=== PATIENT | male | born 1995 | race Caucasian/White ===

== ENCOUNTER 2020-01-22 16:44 | Emergency (ER) | payer OTHER ==
[~2020-01-22] VITALS: Ht 172.7 cm; Wt 89.0 kg
[~2020-01-22 16:44] MED LIST: INSREG SQ
[2020-01-22] MEDS ORDERED: HALOPERIDOL LACTATE 5 MG/ML VIAL IM ONE (17:45)
[2020-01-22 19:28] LABS: GLUCOSE,POINT OF CARE 207 MG/DL (70-110)
[2020-01-22 23:46] VITALS: BP 120/81
[2020-01-23 00:22] LABS: GLUCOSE,POINT OF CARE 331 MG/DL (70-110)
== END 2020-01-23 00:18 | disposition home or self-care (01) ==
LOC: EMS 16:44
DX: F10.129 Alcohol abuse with intoxication, unspecified (principal); E11.9 Type 2 diabetes mellitus without complications; Z79.4 Long term (current) use of insulin; Y90.7 Blood alcohol level of 200-239 mg/100 ml
CPT/HCPCS: 36415; 82962; 96372; 99285; G0480; J1630; 82948

== ENCOUNTER 2020-03-09 13:25 | Emergency (ER) | payer MEDICAID, OTHER ==
[~2020-03-09] VITALS: Ht 175.3 cm; Wt 79.5 kg
[2020-03-09 13:54] LABS: GLUCOSE,POINT OF CARE 330 MG/DL (70-110)
[2020-03-09 14:13] LABS: BASOPHILS % (AUTO) 0.6 % (0.0-2.0); EOSINOPHILS % (AUTO) 1.1 % (1.0-6.0); HEMATOCRIT 46.9 % (41-53); HEMOGLOBIN 16.1 g/dL (13.5-17.5); LYMPHOCYTES # (AUTO) 2.3 K/uL (1.0-4.8); LYMPHOCYTES % (AUTO) 24.2 % (22.0-44.0); MEAN CORPUSCULAR HEMOGLOBIN 30.2 pg (26.0-34.0); MEAN CORPUSCULAR HGB CONC 34.3 G/dL (31.0-37.0); MEAN CORPUSCULAR VOLUME 88 fL (80-100); MONOCYTES # (AUTO) 0.5 K/uL (0.1-1.0); MONOCYTES % (AUTO) 5.8 % (2.0-9.0); NEUTROPHILS # (AUTO) 6.4 K/uL (1.8-7.7); NEUTROPHILS % (AUTO) 68.3 % (40.0-70.0); PLATELET COUNT (AUTO) 296 K/uL (150-450); RED BLOOD CELL COUNT(AUTO) 5.32 MIL/uL (4.50-5.90); RED CELL DISTRIBUTION WIDTH 12.9 % (11.5-14.5)
[2020-03-09 14:44] LABS: ANION GAP 15 mmol/L (8-16); CALCIUM, TOTAL 9.1 mg/dL (8.8-10.5); CARBON DIOXIDE 22 mmol/L (22-29); CHLORIDE 101 mmol/L (98-107); CREATININE 0.83 mg/dL (0.60-1.30); GLOMERULAR FILTR. RATE CALC > 60 mL/min (>60); GLUCOSE,RANDOM 361 mg/dL (70-110); POTASSIUM 4.3 mmol/L (3.5-5.1); SODIUM SERUM 138 mmol/L (136-145); UREA NITROGEN, BLOOD 14 mg/dL (7-18)
[2020-03-09 14:51] LABS: AMMONIA 20 umol/L (11-32)
[2020-03-09 14:59] LABS: AMPHET/METH SCREEN,URINE NEGATIVE (NEGATIVE); BARBITURATE SCREEN, URINE NEGATIVE (NEGATIVE); BENZODIAZEPINES SCREEN,URINE NEGATIVE (NEGATIVE); CANNABINOID SCREEN,URINE NEGATIVE (NEGATIVE); COCAINE SCREEN,URINE NEGATIVE (NEGATIVE); METHADONE SCREEN, URINE NEGATIVE (NEGATIVE); OPIATE SCREEN,URINE NEGATIVE (NEGATIVE)
[2020-03-09 15:01] LABS: TROPONIN I < 0.02 ng/mL (0.00-0.05)
[2020-03-09 15:02] LABS: PHENCYCLIDINE SCREEN,URINE NEGATIVE (NEGATIVE)
[2020-03-09 15:07] LABS: COVID AG,FIA SOURCE NASOPHARYNGEAL
[2020-03-09 15:20] LABS: ALANINE AMINOTRANSFERASE 35 U/L (12-78); ALBUMIN 4.4 g/dL (3.4-5.0); ALKALINE PHOSPHATASE 108 U/L (46-116); ASPARTATE AMINOTRANSFERASE 16 U/L (15-37); BILIRUBIN,TOTAL 0.4 mg/dL (0.1-1.0); CREATINE KINASE, TOTAL ONLY 104 U/L (39-308); LIPASE 78 U/L (73-393); TOTAL PROTEIN, SERUM 7.6 g/dL (6.4-8.2)
[2020-03-09 15:30] LABS: LACTIC ACID 2.6 mmol/L (0.4-2.0)
[2020-03-09] MEDS ORDERED: SODIUM CHLORIDE 0.9% 1,000 ML IV ONE ×2 (15:30→15:45)
[2020-03-09 15:31] VITALS: BP 137/62
[2020-03-09] MEDS ORDERED: INSULIN REGULAR, HUMAN 100 UNITS/ML SQ ONE (15:45)
[2020-03-09 19:19] LABS: GLUCOSE,POINT OF CARE 326 MG/DL (70-110)
== END 2020-03-09 17:09 | disposition home or self-care (01) ==
LOC: EMS 13:36
DX: F10.129 Alcohol abuse with intoxication, unspecified (principal); Z20.828 Contact with and (suspected) exposure to other viral communicable diseases; G93.0 Cerebral cysts; E11.9 Type 2 diabetes mellitus without complications; Z79.4 Long term (current) use of insulin
CPT/HCPCS: 36415; 70450; 71045; 80053; 80307; 82009; 82140; 82550; 82962; 83605; 83690; 83880; 84484; 85025; 87426; 93005; 96372; 99285; G0480; J1815; J7030

== ENCOUNTER 2023-06-11 18:56 | Emergency (ER) | payer OTHER ==
[~2023-06-11] VITALS: Ht 180.3 cm; Wt 86.0 kg
[2023-06-11 19:33] LABS: HEMATOCRIT 46.5 % (41-53); HEMOGLOBIN 15.9 g/dL (13.5-17.5); LYMPHOCYTES # (AUTO) 2.3 K/uL (1.0-4.8); LYMPHOCYTES % (AUTO) 23.4 % (22.0-44.0); MEAN CORPUSCULAR HEMOGLOBIN 29.9 pg (26.0-34.0); MEAN CORPUSCULAR HGB CONC 34.3 G/dL (31.0-37.0); MEAN CORPUSCULAR VOLUME 87 fL (80-100); MONOCYTES # (AUTO) 0.8 K/uL (0.1-1.0); MONOCYTES % (AUTO) 7.8 % (2.0-9.0); NEUTROPHILS # (AUTO) 6.6 K/uL (1.8-7.7); NEUTROPHILS % (AUTO) 66.8 % (40.0-70.0); PLATELET COUNT (AUTO) 367 K/uL (150-450); RED BLOOD CELL COUNT(AUTO) 5.34 MIL/uL (4.50-5.90); RED CELL DISTRIBUTION WIDTH 13.6 % (11.5-14.5); WHITE BLOOD COUNT (AUTO) 9.9 K/uL (4.5-11.0)
[2023-06-11 19:43] VITALS: TEMP 98
[2023-06-11] MEDS ORDERED: SODIUM CHLORIDE 0.9% 1,000 ML IV ONE (19:45)
[2023-06-11] MEDS ORDERED: ChlordiazePOXIDE HCL 25 MG CAPSULE PO ONE (19:45)
[2023-06-11 19:50] LABS: ALCOHOL, BLOOD (SERUM) 87 mg/dL (0-10)
[2023-06-11 20:04] LABS: ANION GAP 20 mmol/L (8-16); CALCIUM, TOTAL 9.2 mg/dL (8.8-10.5); CARBON DIOXIDE 20 mmol/L (22-29); CHLORIDE 109 mmol/L (98-107); GLOMERULAR FILTR. RATE CALC > 60 mL/min (>60); GLUCOSE,RANDOM 105 mg/dL (70-110); SODIUM SERUM 149 mmol/L (136-145); UREA NITROGEN, BLOOD 8 mg/dL (7-18)
[2023-06-11 20:09] LABS: ALANINE AMINOTRANSFERASE 31 U/L (12-78); ALBUMIN 4.4 g/dL (3.4-5.0); ALKALINE PHOSPHATASE 80 U/L (46-116); ASPARTATE AMINOTRANSFERASE 31 U/L (15-37); BILIRUBIN,TOTAL 0.8 mg/dL (0.1-1.0); LIPASE 27 U/L (16-77); TOTAL PROTEIN, SERUM 7.8 g/dL (6.4-8.2)
[2023-06-11 20:16] VITALS: BP 98/60; PULSE 81; RESP 18
[2023-06-11 20:41] LABS: ALCOHOL, URINE DRUG SCREEN POSITIVE (NEGATIVE); AMPHET/METH SCREEN,URINE NEGATIVE (NEGATIVE); BARBITURATE SCREEN, URINE NEGATIVE (NEGATIVE); BENZODIAZEPINES SCREEN,URINE NEGATIVE (NEGATIVE); CANNABINOID SCREEN,URINE NEGATIVE (NEGATIVE); COCAINE SCREEN,URINE NEGATIVE (NEGATIVE); METHADONE SCREEN, URINE NEGATIVE (NEGATIVE); OPIATE SCREEN,URINE NEGATIVE (NEGATIVE); PHENCYCLIDINE SCREEN,URINE NEGATIVE (NEGATIVE)
== END 2023-06-11 21:17 | disposition home or self-care (01) ==
LOC: EMS 19:13
DX: F10.239 Alcohol dependence with withdrawal, unspecified (principal); E11.9 Type 2 diabetes mellitus without complications; E78.00 Pure hypercholesterolemia, unspecified; F17.210 Nicotine dependence, cigarettes, uncomplicated; Y90.9 Presence of alcohol in blood, level not specified
CPT/HCPCS: 99283; 96360; 80053; 83690; 85025; 36415; 80307; G0480; J7030

== ENCOUNTER 2023-11-06 06:10 | Emergency (ER) | payer MEDICAID, OTHER ==
[~2023-11-06] VITALS: Ht 180.3 cm; Wt 86.5 kg
[2023-11-06 06:22] VITALS: TEMP 98.2
[2023-11-06] MEDS: SODIUM CHLORIDE 0.9% 1,000 ML IV ONE (06:55)
[2023-11-06 07:00] LABS: BASOPHILS % (AUTO) 0.9 % (0.0-2.0); HEMATOCRIT 48.5 % (41-53); HEMOGLOBIN 16.6 g/dL (13.5-17.5); LYMPHOCYTES % (AUTO) 31.4 % (22.0-44.0); MEAN CORPUSCULAR HEMOGLOBIN 30.1 pg (26.0-34.0); MEAN CORPUSCULAR HGB CONC 34.2 G/dL (31.0-37.0); MEAN CORPUSCULAR VOLUME 88 fL (80-100); MONOCYTES # (AUTO) 0.8 K/uL (0.1-1.0); MONOCYTES % (AUTO) 8.7 % (2.0-9.0); NEUTROPHILS # (AUTO) 5.4 K/uL (1.8-7.7); PLATELET COUNT (AUTO) 371 K/uL (150-450); RED BLOOD CELL COUNT(AUTO) 5.51 MIL/uL (4.50-5.90); RED CELL DISTRIBUTION WIDTH 13.7 % (11.5-14.5); WHITE BLOOD COUNT (AUTO) 9.5 K/uL (4.5-11.0)
[2023-11-06 07:14] LABS: ANION GAP 16 mmol/L (8-16); CALCIUM, TOTAL 9.6 mg/dL (8.8-10.5); CARBON DIOXIDE 22 mmol/L (22-29); CHLORIDE 97 mmol/L (98-107); CREATININE 0.73 mg/dL (0.60-1.30); GLOMERULAR FILTR. RATE CALC > 60 mL/min (>60); GLUCOSE,RANDOM 212 mg/dL (70-110); POTASSIUM 3.9 mmol/L (3.5-5.1); SODIUM SERUM 135 mmol/L (136-145); UREA NITROGEN, BLOOD 7 mg/dL (7-18)
[2023-11-06 07:19] LABS: ALANINE AMINOTRANSFERASE 27 U/L (12-78); ALBUMIN 4.2 g/dL (3.4-5.0); ALKALINE PHOSPHATASE 80 U/L (46-116); ASPARTATE AMINOTRANSFERASE 17 U/L (15-37); BILIRUBIN,TOTAL 0.9 mg/dL (0.1-1.0); TOTAL PROTEIN, SERUM 8.2 g/dL (6.4-8.2)
[2023-11-06 07:25] LABS: ALCOHOL, BLOOD (SERUM) 56 mg/dL (0-10)
[2023-11-06] MEDS: ChlordiazePOXIDE HCL 25 MG CAPSULE PO ONE (07:36)
[2023-11-06] MEDS ORDERED: CHLO25CA6 PO (07:55)
[2023-11-06 07:58] LABS: ALCOHOL, URINE DRUG SCREEN NEGATIVE (NEGATIVE); AMPHET/METH SCREEN,URINE NEGATIVE (NEGATIVE); BARBITURATE SCREEN, URINE NEGATIVE (NEGATIVE); BENZODIAZEPINES SCREEN,URINE NEGATIVE (NEGATIVE); CANNABINOID SCREEN,URINE NEGATIVE (NEGATIVE); COCAINE SCREEN,URINE NEGATIVE (NEGATIVE); METHADONE SCREEN, URINE NEGATIVE (NEGATIVE); OPIATE SCREEN,URINE NEGATIVE (NEGATIVE); PHENCYCLIDINE SCREEN,URINE NEGATIVE (NEGATIVE)
[2023-11-06 08:10] VITALS: BP 113/67; PULSE 79; RESP 18
== END 2023-11-06 08:24 | disposition home or self-care (01) ==
LOC: EMS 06:11
DX: F10.239 Alcohol dependence with withdrawal, unspecified (principal); E11.9 Type 2 diabetes mellitus without complications; F17.210 Nicotine dependence, cigarettes, uncomplicated; Z79.899 Other long term (current) drug therapy; Y90.6 Blood alcohol level of 120-199 mg/100 ml
CPT/HCPCS: 99283; 96360; 80053; 82009; 85025; 36415; 80307; G0480; J7030

== ENCOUNTER 2024-02-25 17:56 | Emergency (ER) | payer MEDICAID ==
[~2024-02-25] VITALS: Ht 180.3 cm; Wt 86.0 kg
[~2024-02-25 17:56] MED LIST changes: +CHLO25CA6 PO; -INSREG SQ
[2024-02-25 18:38] VITALS: BP 127/65; PULSE 76; RESP 20; TEMP 98; O2SAT 96
[2024-02-25 19:07] LABS: ANION GAP 11 mmol/L (8-16); CALCIUM, TOTAL 8.8 mg/dL (8.8-10.5); CARBON DIOXIDE 25 mmol/L (22-29); CHLORIDE 101 mmol/L (98-107); CREATININE 0.69 mg/dL (0.60-1.30); GLOMERULAR FILTR. RATE CALC > 60 mL/min (>60); GLUCOSE,RANDOM 141 mg/dL (70-110); POTASSIUM 3.7 mmol/L (3.5-5.1); SODIUM SERUM 137 mmol/L (136-145); UREA NITROGEN, BLOOD 9 mg/dL (7-18)
[2024-02-25 19:11] LABS: BASOPHILS % (AUTO) 0.6 % (0.0-2.0); EOSINOPHILS % (AUTO) 1.6 % (1.0-6.0); LYMPHOCYTES # (AUTO) 2.6 K/uL (1.0-4.8); LYMPHOCYTES % (AUTO) 28.4 % (22.0-44.0); MEAN CORPUSCULAR HEMOGLOBIN 29.7 pg (26.0-34.0); MEAN CORPUSCULAR HGB CONC 33.4 G/dL (31.0-37.0); MEAN CORPUSCULAR VOLUME 89 fL (80-100); MONOCYTES # (AUTO) 0.9 K/uL (0.1-1.0); MONOCYTES % (AUTO) 10.3 % (2.0-9.0); NEUTROPHILS # (AUTO) 5.4 K/uL (1.8-7.7); NEUTROPHILS % (AUTO) 59.1 % (40.0-70.0); PLATELET COUNT (AUTO) 363 K/uL (150-450); RED CELL DISTRIBUTION WIDTH 14.3 % (11.5-14.5); WHITE BLOOD COUNT (AUTO) 9.1 K/uL (4.5-11.0)
[2024-02-25 19:17] LABS: ALANINE AMINOTRANSFERASE 25 U/L (12-78); ALBUMIN 3.8 g/dL (3.4-5.0); ALCOHOL, BLOOD (SERUM) < 3 mg/dL (0-10); ALKALINE PHOSPHATASE 75 U/L (46-116); ASPARTATE AMINOTRANSFERASE 18 U/L (15-37); BILIRUBIN,TOTAL 0.5 mg/dL (0.1-1.0); LIPASE 32 U/L (16-77); TOTAL PROTEIN, SERUM 7.4 g/dL (6.4-8.2)
== END 2024-02-25 20:57 | disposition home or self-care (01) ==
LOC: EMS 17:56
DX: R11.2 Nausea with vomiting, unspecified (principal); R10.84 Generalized abdominal pain; F10.20 Alcohol dependence, uncomplicated; E11.9 Type 2 diabetes mellitus without complications; E78.00 Pure hypercholesterolemia, unspecified; K76.0 Fatty (change of) liver, not elsewhere classified; F17.210 Nicotine dependence, cigarettes, uncomplicated
CPT/HCPCS: 99283; 80048; 80076; 83690; 85025; 36415; G0480

== ENCOUNTER 2024-04-01 22:22 | Emergency (ER) | payer MEDICAID ==
[~2024-04-01] VITALS: Ht 175.3 cm; Wt 95.5 kg
[2024-04-01 22:34] VITALS: TEMP 98
[2024-04-01 23:19] LABS: BASOPHILS % (AUTO) 0.9 % (0.0-2.0); EOSINOPHILS % (AUTO) 0.5 % (1.0-6.0); HEMATOCRIT 49.9 % (41-53); HEMOGLOBIN 16.9 g/dL (13.5-17.5); LYMPHOCYTES # (AUTO) 2.7 K/uL (1.0-4.8); LYMPHOCYTES % (AUTO) 24.5 % (22.0-44.0); MEAN CORPUSCULAR HEMOGLOBIN 29.7 pg (26.0-34.0); MEAN CORPUSCULAR HGB CONC 33.9 G/dL (31.0-37.0); MEAN CORPUSCULAR VOLUME 88 fL (80-100); MONOCYTES # (AUTO) 0.9 K/uL (0.1-1.0); NEUTROPHILS # (AUTO) 7.3 K/uL (1.8-7.7); NEUTROPHILS % (AUTO) 66.1 % (40.0-70.0); PLATELET COUNT (AUTO) 340 K/uL (150-450); RED CELL DISTRIBUTION WIDTH 13.8 % (11.5-14.5)
[2024-04-01 23:30] LABS: ANION GAP 15 mmol/L (8-16); CALCIUM, TOTAL 8.7 mg/dL (8.8-10.5); CARBON DIOXIDE 21 mmol/L (22-29); CHLORIDE 96 mmol/L (98-107); CREATININE 0.71 mg/dL (0.60-1.30); GLOMERULAR FILTR. RATE CALC > 60 mL/min (>60); GLUCOSE,RANDOM 216 mg/dL (70-110); SODIUM SERUM 131 mmol/L (136-145); UREA NITROGEN, BLOOD 7 mg/dL (7-18)
[2024-04-01 23:35] LABS: ALANINE AMINOTRANSFERASE 35 U/L (12-78); ASPARTATE AMINOTRANSFERASE 30 U/L (15-37)
[2024-04-01 23:47] LABS: ALKALINE PHOSPHATASE 94 U/L (46-116); BILIRUBIN,TOTAL 1.1 mg/dL (0.1-1.0); TOTAL PROTEIN, SERUM 7.7 g/dL (6.4-8.2)
[2024-04-02 00:01] LABS: APPEARANCE,URINE CLEAR (CLEAR); BILIRUBIN,URINE NEGATIVE (NEGATIVE); COLOR,URINE LIGHT YELLOW (YELLOW); GLUCOSE, URINE (UA) >=1000 mg/dL (NEGATIVE); KETONES,URINE 40-60 mg/dL (NEGATIVE); LEUKOCYTE ESTERASE ,URINE NEGATIVE (NEGATIVE); NITRATE,URINE NEGATIVE (NEGATIVE); OCCULT BLOOD,URINE NEGATIVE (NEGATIVE); PROTEIN,URINE NEGATIVE (NEGATIVE); SPECIFIC GRAVITIY, URINE 1.016 (1.003-1.030); UROBILINOGEN,URINE <=1.0 mg/dL (<=1.0)
[2024-04-02 00:17] LABS: BACTERIA,URINE None Seen /HPF (None Seen); RBC,URINE None Seen /HPF (0-2); SQUAMOUS EPITHELIAL CELL,UR Few /LPF (None Seen); WBC,URINE None Seen /HPF (0-5)
[2024-04-02 00:20] LABS: LIPASE 31 U/L (16-77)
[2024-04-02 00:22] LABS: ALCOHOL, BLOOD (SERUM) 155 mg/dL (0-10)
[2024-04-02 00:26] LABS: ACETONE,BLOOD NEGATIVE (NEGATIVE)
[2024-04-02] MEDS: ChlordiazePOXIDE HCL 25 MG CAPSULE PO ONE (00:26)
[2024-04-02] MEDS: SODIUM CHLORIDE 0.9% 1,000 ML IV ONE (00:27)
[2024-04-02] MEDS: FAMOTIDINE 20 MG/2 ML VIAL IVP ONE (00:27)
[2024-04-02 03:02] VITALS: BP 123/63; PULSE 86; RESP 18; O2SAT 96
[2024-04-02 03:02] LABS: TROPONIN I-HIGH SENSITIVITY 4 ng/L (<76)
[2024-04-02 03:39] LABS: ALCOHOL, URINE DRUG SCREEN POSITIVE (NEGATIVE); AMPHET/METH SCREEN,URINE NEGATIVE (NEGATIVE); BARBITURATE SCREEN, URINE NEGATIVE (NEGATIVE); BENZODIAZEPINES SCREEN,URINE NEGATIVE (NEGATIVE); CANNABINOID SCREEN,URINE NEGATIVE (NEGATIVE); COCAINE SCREEN,URINE NEGATIVE (NEGATIVE); METHADONE SCREEN, URINE NEGATIVE (NEGATIVE); OPIATE SCREEN,URINE NEGATIVE (NEGATIVE); PHENCYCLIDINE SCREEN,URINE NEGATIVE (NEGATIVE)
[2024-04-02] MEDS ORDERED: FAMO40TA76 PO (03:46)
[2024-04-03 07:31] LABS: GLUCOMETER DEV NAME(LOC) ER.7; GLUCOSE,POINT OF CARE 271 MG/DL (70-110)
== END 2024-04-02 04:08 | disposition home or self-care (01) ==
LOC: EMS 22:23
DX: K29.20 Alcoholic gastritis without bleeding (principal); F10.129 Alcohol abuse with intoxication, unspecified; R11.2 Nausea with vomiting, unspecified; E11.9 Type 2 diabetes mellitus without complications; E78.00 Pure hypercholesterolemia, unspecified; K76.0 Fatty (change of) liver, not elsewhere classified; Z79.4 Long term (current) use of insulin; Z91.041 Radiographic dye allergy status; F17.210 Nicotine dependence, cigarettes, uncomplicated; Y90.6 Blood alcohol level of 120-199 mg/100 ml
CPT/HCPCS: 99285; 80053; 81001; 82009; 82962; 83690; 84484; 85025; 93005; 80307; 74176; 96374; 96361; 36415; G0480; J3490; J7030

== ENCOUNTER 2024-06-23 16:56 | Emergency (ER) | payer MEDICAID, OTHER ==
[~2024-06-23] VITALS: Ht 172.7 cm; Wt 85.0 kg
[~2024-06-23 16:56] MED LIST changes: +FAMO40TA76 PO
[2024-06-23 18:19] VITALS: BP 122/80; PULSE 78; RESP 20; TEMP 97.7; O2SAT 98
[2024-06-23] MEDS ORDERED: PRAV40TA4 PO (18:45)
[2024-06-23] MEDS ORDERED: FLUT16H NASAL (18:45)
[2024-06-23] MEDS ORDERED: INSU100I26 SQ (18:45)
[2024-06-23] MEDS ORDERED: INSU200I SQ (18:45)
[2024-06-23 18:46] LABS: BASOPHILS % (AUTO) 0.8 % (0.0-2.0); EOSINOPHILS % (AUTO) 0.7 % (1.0-6.0); HEMOGLOBIN 16.4 g/dL (13.5-17.5); LYMPHOCYTES # (AUTO) 3.5 K/uL (1.0-4.8); LYMPHOCYTES % (AUTO) 28.4 % (22.0-44.0); MEAN CORPUSCULAR HEMOGLOBIN 29.1 pg (26.0-34.0); MEAN CORPUSCULAR HGB CONC 33.4 G/dL (31.0-37.0); MEAN CORPUSCULAR VOLUME 87 fL (80-100); MONOCYTES # (AUTO) 1.2 K/uL (0.1-1.0); MONOCYTES % (AUTO) 9.8 % (2.0-9.0); NEUTROPHILS # (AUTO) 7.5 K/uL (1.8-7.7); NEUTROPHILS % (AUTO) 60.3 % (40.0-70.0); PLATELET COUNT (AUTO) 381 K/uL (150-450); RED BLOOD CELL COUNT(AUTO) 5.62 MIL/uL (4.50-5.90); RED CELL DISTRIBUTION WIDTH 13.8 % (11.5-14.5); WHITE BLOOD COUNT (AUTO) 12.4 K/uL (4.5-11.0)
[2024-06-23 18:54] LABS: ANION GAP 10 mmol/L (8-16); CARBON DIOXIDE 27 mmol/L (22-29); CHLORIDE 96 mmol/L (98-107); POTASSIUM 3.7 mmol/L (3.5-5.1); SODIUM SERUM 133 mmol/L (136-145)
[2024-06-23 19:02] LABS: ALCOHOL, BLOOD (SERUM) < 3 mg/dL (0-10)
[2024-06-23 19:06] LABS: ALANINE AMINOTRANSFERASE 43 U/L (12-78); ALBUMIN 4.3 g/dL (3.4-5.0); ALKALINE PHOSPHATASE 99 U/L (46-116); ASPARTATE AMINOTRANSFERASE 35 U/L (15-37); BILIRUBIN,TOTAL 1.2 mg/dL (0.1-1.0); CALCIUM, TOTAL 9.1 mg/dL (8.8-10.5); CREATININE 0.69 mg/dL (0.60-1.30); GLOMERULAR FILTR. RATE CALC > 60 mL/min (>60); GLUCOSE,RANDOM 65 mg/dL (70-110); LIPASE 19 U/L (16-77); TOTAL PROTEIN, SERUM 8.8 g/dL (6.4-8.2); UREA NITROGEN, BLOOD 9 mg/dL (7-18)
[2024-06-23] MEDS: FAMOTIDINE 20 MG/2 ML VIAL IVP ONE (19:33)
[2024-06-23] MEDS: SODIUM CHLORIDE 0.9% 1,000 ML IV ONE (19:33)
[2024-06-23 19:36] LABS: GLUCOMETER DEV NAME(LOC) ER.7; GLUCOSE,POINT OF CARE 71 MG/DL (70-110)
[2024-06-23] MEDS ORDERED: ONDA-104 PO (20:34)
== END 2024-06-23 20:53 | disposition home or self-care (01) ==
LOC: EMS 16:56
DX: F10.20 Alcohol dependence, uncomplicated (principal); R11.2 Nausea with vomiting, unspecified; R10.84 Generalized abdominal pain; E11.9 Type 2 diabetes mellitus without complications; E78.00 Pure hypercholesterolemia, unspecified; F17.210 Nicotine dependence, cigarettes, uncomplicated; I10 Essential (primary) hypertension; K76.0 Fatty (change of) liver, not elsewhere classified; Z79.4 Long term (current) use of insulin; Z91.041 Radiographic dye allergy status
CPT/HCPCS: 99283; 96374; 96361; 80048; 80076; 82962; 83690; 83735; 85025; 36415; G0480; J3490; J7030

== ENCOUNTER 2024-07-28 18:28 | Emergency (ER) | payer OTHER ==
[~2024-07-28] VITALS: Ht 180.3 cm; Wt 86.4 kg
[~2024-07-28 18:28] MED LIST changes: -CHLO25CA6 PO; -FAMO40TA76 PO; +FLUT16H NASAL; +INSU100I26 SQ; +INSU200I SQ; +ONDA-104 PO; +PRAV40TA4 PO
[2024-07-28 18:48] VITALS: TEMP 98.4
[2024-07-28 19:49] LABS: BASOPHILS % (AUTO) 0.9 % (0.0-2.0); EOSINOPHILS % (AUTO) 1.8 % (1.0-6.0); HEMATOCRIT 46.9 % (41-53); HEMOGLOBIN 15.7 g/dL (13.5-17.5); LYMPHOCYTES # (AUTO) 3.3 K/uL (1.0-4.8); MEAN CORPUSCULAR HEMOGLOBIN 29.3 pg (26.0-34.0); MEAN CORPUSCULAR HGB CONC 33.4 G/dL (31.0-37.0); MEAN CORPUSCULAR VOLUME 88 fL (80-100); MONOCYTES % (AUTO) 11.6 % (2.0-9.0); NEUTROPHILS % (AUTO) 46.7 % (40.0-70.0); PLATELET COUNT (AUTO) 380 K/uL (150-450); RED BLOOD CELL COUNT(AUTO) 5.37 MIL/uL (4.50-5.90); RED CELL DISTRIBUTION WIDTH 14.2 % (11.5-14.5); WHITE BLOOD COUNT (AUTO) 8.6 K/uL (4.5-11.0)
[2024-07-28 19:53] LABS: ANION GAP 13 mmol/L (8-16); CARBON DIOXIDE 24 mmol/L (22-29); CHLORIDE 100 mmol/L (98-107); CREATININE 0.65 mg/dL (0.60-1.30); GLOMERULAR FILTR. RATE CALC > 60 mL/min (>60); GLUCOSE,RANDOM 128 mg/dL (70-110); LIPASE 16 U/L (16-77); POTASSIUM 3.8 mmol/L (3.5-5.1); SODIUM SERUM 137 mmol/L (136-145); UREA NITROGEN, BLOOD 10 mg/dL (7-18)
[2024-07-28 19:57] LABS: ALBUMIN 4.1 g/dL (3.4-5.0); BILIRUBIN,DIRECT 0.2 mg/dL (0.00-0.20); BILIRUBIN,TOTAL 0.7 mg/dL (0.1-1.0)
[2024-07-28 20:10] LABS: ALCOHOL, BLOOD (SERUM) 41 mg/dL (0-10)
[2024-07-28 20:51] VITALS: BP 114/66; PULSE 59; RESP 20; O2SAT 96
[2024-07-28] MEDS ORDERED: CHLO25CA6 PO (21:13)
[2024-07-28] MEDS: ChlordiazePOXIDE HCL 25 MG CAPSULE PO ONE (21:37)
== END 2024-07-28 21:38 | disposition home or self-care (01) ==
LOC: EMS 18:31
DX: F10.239 Alcohol dependence with withdrawal, unspecified (principal); E11.9 Type 2 diabetes mellitus without complications; E78.00 Pure hypercholesterolemia, unspecified; K76.0 Fatty (change of) liver, not elsewhere classified; F17.210 Nicotine dependence, cigarettes, uncomplicated; R44.0 Auditory hallucinations; Z79.4 Long term (current) use of insulin; Z91.041 Radiographic dye allergy status
CPT/HCPCS: 99283; 80048; 80076; 82962; 83690; 85025; 36415; G0480

== ENCOUNTER 2024-10-20 09:20 | Emergency (ER) | payer OTHER ==
[~2024-10-20] VITALS: Ht 177.8 cm; Wt 86.4 kg
[~2024-10-20 09:20] MED LIST changes: +CHLO25CA6 PO; +PRAV-59 PO; -PRAV40TA4 PO
[2024-10-20 09:41] VITALS: TEMP 98.1
[2024-10-20 09:56] LABS: GLUCOMETER DEV NAME(LOC) ER.7; GLUCOSE,POINT OF CARE 261 MG/DL (70-110)
[2024-10-20 10:21] LABS: BASOPHILS % (AUTO) 0.7 % (0.0-2.0); HEMATOCRIT 46.4 % (41-53); HEMOGLOBIN 15.5 g/dL (13.5-17.5); LYMPHOCYTES # (AUTO) 2.3 K/uL (1.0-4.8); LYMPHOCYTES % (AUTO) 20.6 % (22.0-44.0); MEAN CORPUSCULAR HEMOGLOBIN 28.6 pg (26.0-34.0); MEAN CORPUSCULAR HGB CONC 33.4 G/dL (31.0-37.0); MEAN CORPUSCULAR VOLUME 86 fL (80-100); MONOCYTES # (AUTO) 0.7 K/uL (0.1-1.0); MONOCYTES % (AUTO) 6.1 % (2.0-9.0); NEUTROPHILS % (AUTO) 71.6 % (40.0-70.0); PLATELET COUNT (AUTO) 348 K/uL (150-450); RED BLOOD CELL COUNT(AUTO) 5.42 MIL/uL (4.50-5.90); RED CELL DISTRIBUTION WIDTH 13.8 % (11.5-14.5); WHITE BLOOD COUNT (AUTO) 11.2 K/uL (4.5-11.0)
[2024-10-20 10:31] LABS: ANION GAP 14 mmol/L (8-16); CALCIUM, TOTAL 8.7 mg/dL (8.8-10.5); CARBON DIOXIDE 24 mmol/L (22-29); CHLORIDE 95 mmol/L (98-107); CREATININE 0.81 mg/dL (0.60-1.30); GLOMERULAR FILTR. RATE CALC > 60 mL/min (>60); GLUCOSE,RANDOM 261 mg/dL (70-110); POTASSIUM 4.1 mmol/L (3.5-5.1); SODIUM SERUM 133 mmol/L (136-145); UREA NITROGEN, BLOOD 9 mg/dL (7-18)
[2024-10-20 10:32] LABS: LIPASE 16 U/L (16-77)
[2024-10-20 10:33] LABS: ALCOHOL, BLOOD (SERUM) 40 mg/dL (0-10)
[2024-10-20 10:42] LABS: TROPONIN I-HIGH SENSITIVITY 5 ng/L (<76)
[2024-10-20] MEDS: SODIUM CHLORIDE 0.9% 1,000 ML IV ONE (11:02)
[2024-10-20] MEDS: ChlordiazePOXIDE HCL 25 MG CAPSULE PO ONE (11:02)
[2024-10-20] MEDS: SODIUM CHLORIDE 0.9% 500 ML IV ONE (11:32)
[2024-10-20 12:00] VITALS: BP 127/89; PULSE 85; RESP 17; O2SAT 100
[2024-10-20] MEDS ORDERED: CHLO10CA7 PO (13:31)
== END 2024-10-20 13:55 | disposition home or self-care (01) ==
LOC: EMS 09:21
DX: F10.939 Alcohol use, unspecified with withdrawal, unspecified (principal); E11.9 Type 2 diabetes mellitus without complications; E78.00 Pure hypercholesterolemia, unspecified; K76.0 Fatty (change of) liver, not elsewhere classified; F17.210 Nicotine dependence, cigarettes, uncomplicated; Z79.4 Long term (current) use of insulin; Z91.041 Radiographic dye allergy status; Z79.899 Other long term (current) drug therapy; Y90.2 Blood alcohol level of 40-59 mg/100 ml
CPT/HCPCS: 99285; 96360; 71045; 80048; 82962; 83690; 84484; 85025; 36415; 93005; G0480; J7030; J7040